=== PATIENT | female | born 1995 | race Caucasian/White ===

== ENCOUNTER 2021-12-22 06:16 | Inpatient (IN) ==
--- NOTE | 2021-12-13 15:16 | Anesthesiology Consultation ---
Date of Service December 13, 2021 Assessment & Plan (1) Encounter for pre-operative examination: COVID screening: Per assessment on 12/13: No known COVID-19 positive contacts or current COVID-19 related symptoms. Travel screen negative. Surgeon arranging preop COVID testing. Awaiting results. 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 History Surgery Operation Date: 12/22/21 09:35 Proposed Procedures p Section in - Zeke Ziggy Dave MD Height/Weight Height: 5 ft 7 in Weight: 81.193 kg Allergies Allergy/AdvReac Type Severity Reaction Status Date / Time No Known Allergies Allergy Verified 12/13/21 14:41 Medications Home Medications Medication Instructions Recorded Confirmed Last Taken No Known Home Medications 12/13/21 12/13/21 Unknown Past Medical History Medical History Hx of fracture of wrist No surgical intervention Past Surgical History Surgical History Hx of oral surgery tooth implant Social History Smoking Status: Former smoker Do You Dip or Chew Tobacco: No Smoking End Date: quit 3 years ago Hx Alcohol Use: Yes (not currently due to ) Alcohol type: beer alcohol intake frequency: a few times a month Hx Substance Use: No substance use type: does not use
[~2021-12-22 06:16] MED LIST: CITRIC ACID/SODIUM CITRATE 15 ML UDC PO SCH; LACTATED RINGER'S 1,000 ML IV SCH
[2021-12-22] MEDS ORDERED: cefOXitin 2,000 MG in DEXTROSE 5% 50 ML IV STA (06:41)
[2021-12-22 07:05] LABS: Basophils # (auto) 0.04 K/uL (0-0.2); Basophils % (auto) 0.4 %; Eosinophils # (auto) 0.06 K/uL (0-0.50); Eosinophils % (auto) 0.6 %; Hematocrit (blood only) 34.1 % (34.1-44.9); Hemoglobin 11.8 g/dl (12.0-16.0); Immature Granulocytes # (auto) 0.13 K/uL (0.00-0.02); Immature Granulocytes % (auto) 1.3 %; Lymphocytes # (auto) 1.92 K/uL (1.2-3.4); Mean Corpuscular Hemoglobin 31.1 pg (25.0-34.0); Mean Corpuscular Hgb Conc 34.6 g/dL (32.0-36.0); Mean Corpuscular Volume 89.7 fL (80.0-100.0); Mean Platelet Volume 10.4 fL (9.4-12.3); Monocytes % (auto) 6.9 %; Neutrophils # (auto) 7.23 K/uL (1.4-6.5); Neutrophils % (auto) 71.8 %; Platelet Count 229 K/uL (130-400); RDW Standard Deviation 38.9 fL (36.4-46.3); White Blood Count 10.08 K/ul (4.8-10.8)
[2021-12-22 07:59] LABS: INR 0.9 (0.9-1.1); Partial Thromboplastin Ratio 0.9; Partial Thromboplastin Time 24.8 Seconds (21.0-31.0); Prothrombin Time 9.9 Seconds (9.0-12.0)
[2021-12-22] MEDS ORDERED: BUPIVACAINE 0.25% 30 ML VIAL ONE (08:04)
[2021-12-22] MEDS ORDERED: fentaNYL citrate 100 MCG/2 ML VIAL ONE (08:15)
[2021-12-22] MEDS ORDERED: MoRPHine SULFATE PF 1 MG/ML 10 ML AMP/VIAL ONE ×2 (08:26→09:13)
[2021-12-22] MEDS ORDERED: LACTATED RINGER'S 500 ML IV PRN (09:44)
[2021-12-22] MEDS ORDERED: NALOXONE HCL 0.08 MG in SYRINGE 1.8 ML IV PRN (09:44)
[2021-12-22] MEDS ORDERED: PROMETHAZINE HCL 12.5 MG in SODIUM CHLORIDE 0.9% 50 ML IV PRN (09:44)
[2021-12-22] MEDS ORDERED: diphenhydrAMINE 50 MG/ML VIAL IV PRN ×2 (09:44→10:36)
[2021-12-22] MEDS ORDERED: ONDANSETRON INJ 2 MG/ML 2 ML VIAL IV PRN ×2 (09:44→10:36)
[2021-12-22] MEDS ORDERED: NALOXONE HCL 1 MG in SODIUM CHLORIDE 0.9% 1000ML 1,000 ML IV PRN (09:44)
[2021-12-22] MEDS ORDERED: MoRPHine SULFATE 2 MG/ML CARP IV PRN (09:44)
[2021-12-22] MEDS ORDERED: NALOXONE HCL 0.4 MG/1 ML VIAL/CARP IV PRN (09:44)
[2021-12-22] MEDS ORDERED: MoRPHine SULFATE PF 1 MG/ML 10 ML AMP/VIAL INT SPINAL ONE (09:44)
[2021-12-22] MEDS ORDERED: ePHEDrine sulfate 50 MG/ML AMP IV PRN (09:44)
[2021-12-22] MEDS ORDERED: NALBUPHINE HCL INJ 10 MG/ML AMP IV PRN (09:44)
[2021-12-22] MEDS ORDERED: SODIUM CHLORIDE 0.9% 1000ML 1,000 ML IV SCH (09:45)
[2021-12-22] MEDS ORDERED: NO NARCOTICS OR SEDATIVES SCH (09:45)
[2021-12-22] MEDS ORDERED: DC INTRASPINAL MORPHINE SCH (09:45)
[2021-12-22] MEDS ORDERED: OXYTOCIN 10 UNITS/ML VIAL ONE (09:52)
[2021-12-22] MEDS ORDERED: ONDANSETRON INJ 2 MG/ML 2 ML VIAL ONE (09:59)
[2021-12-22] MEDS ORDERED: METOCLOPRAMIDE HCL INJ 5 MG/ML 2 ML VIAL ONE (09:59)
[2021-12-22] MEDS ORDERED: PROPOFOL IV EMULSION 10 MG/ML 20 ML VIAL IV ONE (09:59)
[2021-12-22] MEDS ORDERED: OXYTOCIN 10 UNITS/ML 10ML VIAL ONE (09:59)
[2021-12-22] MEDS ORDERED: ePHEDrine sulfate 50 MG/ML SYR ONE (09:59)
[2021-12-22] MEDS ORDERED: PHENYLEPHRINE 100MCG/ML 5ML SYR ONE (09:59)
[2021-12-22] MEDS ORDERED: SUCCINYLCHOLINE CHLORIDE 20 MG/ML 10 ML VIAL IV ONE (09:59)
--- NOTE | 2021-12-22 10:01 | History and Physical Report ---
DATE OF ADMISSION: 12/22/2021 CHIEF COMPLAINT: Vaginal bleeding post-external podalic version, abruption of the placenta. HISTORY OF PRESENT ILLNESS: The patient is a 26-year-old 2, para 0. She had an uneventful p renatal course. However, the baby has been breach, has been documented to be breech for well over a month. Placenta was in the upper right fundal portion. The patient requested attempted version. We brought her into the hospital at 39 weeks and performed a successful external podalic version; daniel jerome, several minutes after the version, we did a vaginal exam, she had some bright red vaginal bleeding . At this time, she was felt to have partial abruption of the placenta secondary to the version and w e proceeded to do primary low segment section. PAST MEDICAL HISTORY: No known drug allergies. PAST SURGICAL HISTORY: She had an implant of one of her teeth. MEDICAL HISTORY: No history of rheumatic fever, heart disease, heart murmur, diabetes or tuberculosi s. SOCIAL HISTORY: About half a pack a day smoker for several years, quit about 3 years ago. No alcoho l intake. Works at [employer] [place]. FAMILY HISTORY: Mom is 53, in good health. Father 54, in good health. One sister 29, in good healt h. One brother 23, in good health. REVIEW OF SYSTEMS: HEAD: No symptoms of frequent or severe headaches. EYES: No symptoms of blurred vision or double vision. EARS: No symptoms of frequent ear infections, difficulty hearing. PHYSICAL EXAMINATION: GENERAL: Well-developed, well-nourished 26-year-old white female, alert, oriented x3, cooperative, i n no acute distress, appeared her stated age. EYES: Conjunctivae are pink. Sclerae are white, no evidence of jaundice. ENT: Ears had normal light reflex bilaterally. NOSE: Had normal mucosa. Septum is midline. There were no polyps. THROAT: No erythema or evidence of infection. HEART: Had regular rhythm. S1 and S2 are normal. BREASTS: Normal. ABDOMEN: Revealed term size fetus. No CVA tenderness. Was at vertex presentation. PELVIC: Revealed large amount of bright red vaginal bleeding. Cervix 1 cm open. MUSCULOSKELETAL: Revealed no calf tenderness. IMPRESSION OF THIS CASE: Intrauterine at 39 weeks' gestation, abruption of the placenta se condary to external version. Job ID: [id number]
[2021-12-22] MEDS ORDERED: LIDOCAINE 2%/EPINEPHRINE 1:200,000 20 ML SDV ONE (10:07)
[2021-12-22] MEDS ORDERED: ARISTA ABSORBABLE HEMOSTAT 3GM ONE (10:17)
[2021-12-22] MEDS ORDERED: OXYTOCIN 10 UNITS/ML 10ML VIAL IM ONE (10:19)
[2021-12-22] MEDS ORDERED: SENNA 8.6 MG TAB PO PRN (10:36)
[2021-12-22] MEDS ORDERED: diphenhydrAMINE Capsule 25 MG CAP PO PRN (10:36)
[2021-12-22] MEDS ORDERED: MEPERIDINE HCL 50 MG/ML CARP IV PRN (10:36)
[2021-12-22] MEDS ORDERED: KETOROLAC 30 MG/ML VIAL IV PRN (10:36)
[2021-12-22] MEDS ORDERED: DIPHTHERIA/TETANUS/PERTUSSIS 0.5 ML SYR/VIAL IM ONE (10:36)
[2021-12-22] MEDS ORDERED: ZOLPIDEM TARTRATE 5 MG TAB PO PRN (10:36)
[2021-12-22] MEDS ORDERED: HYDROCORTISONE ACETATE 25 MG SUPP PR PRN (10:36)
[2021-12-22] MEDS ORDERED: BENZOCAINE 20% AER SPR 82.5 GM CAN EXT PRN (10:36)
[2021-12-22] MEDS ORDERED: MAGNESIUM HYDROXIDE SUSP 30 ML UDC PO PRN (10:36)
[2021-12-22] MEDS ORDERED: PROMETHAZINE HCL 25 MG in SODIUM CHLORIDE 0.9% 50 ML IV PRN (10:36)
--- NOTE | 2021-12-22 10:36 | Post Operative Brief Note ---
Immediate Post Op Note v1 Date of Surgery December 22, 2021 Pre & Post Diagnosis Operation Date: 12/22/21 08:15 Pre-Op Diagnosis: Primary Section for Bleeding following successful Version. Post-Op Diagnosis: Primary Section for Bleeding following successful Version. I identified the patient and participated in the time-out.: Yes Procedure Operation Date: 12/22/21 08:15 Actual Procedures p Section in Labor and Delivery; Live Male at 0955(Bilateral) - Zeke Dave MD Surgeon Zeke Dave MD Senior Architectural Designer Dr Tinsley Estimated Blood Loss 700 Findings Consistent with Post-Op Diagnosis vertex presentation Drains Reyes Catheter Anesthesia Type Spinal Complications none
[2021-12-22] MEDS ORDERED: LACTATED RINGER'S 1,000 ML IV SCH (10:45)
--- NOTE | 2021-12-22 11:45 | Operative Report (OR) ---
DATE OF PROCEDURE: 12/22/2021 PROCEDURE: Primary low segment section. INDICATIONS FOR SURGERY: Vaginal bleeding post-external podalic version. PREOPERATIVE DIAGNOSIS: Intrauterine at 39 weeks' gestation. POSTOPERATIVE DIAGNOSES: Intrauterine at 39 weeks' gestation. Nuchal cord x1. SURGEON: Liliana Dave MD. SAMPLE MAKER HAND: Laverne Bush MD. ESTIMATED BLOOD LOSS: 700 mL ANESTHESIA: Spinal. OPERATIVE FINDING AND PROCEDURE: The patient was brought to the OR table, correctly identified by lauren sierra and conversation. Spinal anesthesia was administered. Lower abdomen was painted with an alcoh ol based sterilizing solution and draped in usual sterile fashion. Pfannenstiel incision was made, c arried down to the anterior fascia by sharp dissection. Hemostasis was secured by electrocauterizati on. Fascia was incised transversely from the underlying muscle by blunt and sharp dissect ion. Recti muscles were in the midline supposed in the peritoneum, which was carefully curran sed and entered. The lower uterine segment was exposed. Incision was made above the vesicouterine f old. Bladder was undermined bluntly, pushed out of the operative field. Lower uterine segment was s cored with a knife and then entered with the scissors. Amniotic fluid was seen at this time, incisio n was then extended laterally. A Vectis retractor was applied to the head and with fundal pressure, the head was delivered, there was a nuchal cord, which had to be reduced over the head and then the s houlders were delivered and the body was delivered. Cord blood was stripped and then clamped and cut and the infant was shown to the mother and attended to by the public address systems mechanic who was scrubbed, and pre sent at the time of delivery. Cord blood was taken. Placenta was removed manually. Uterus, tubes, and ovaries were brought out through the incision. Uterine cavity was cleansed with a clean sponge. 10 units of Pitocin was injected into the myometrium. The myometrium was approximated in layers. T he muscular layer was approximated with continuous heavy duty chromic. Then, the fascial layer was a pproximated over this with a continuous suture of heavy Vicryl. Then, there was about 3 descux-qy-dl ght sutures of heavy Vicryl that finish the approximation of the fascial layer. The peritoneal layer was then approximated with a 3-0 chromic. Hemostasis was excellent. Pelvis was cleansed of all blo od clots and debris. Uterus, tubes, and ovaries were reinserted into the abdomen. Careful anatomica l approximation of the anterior abdominal wall was performed. The peritoneum was closed with a mattr ess suture of chromic catgut. Recti muscles were approximated in [id number]-cavog suture chromic catg ut. Fascia was closed with continuous interlocking suture of Vicryl on each side tied in the midline . Subcutaneous was approximated with a running plain and skin edges were approximated with staple cl [facility]. Job ID: [id number]
[2021-12-22] MEDS: KETOROLAC 30 MG/ML VIAL IV PRN ×2 (13:03→21:08)
[2021-12-22] MEDS: SIMETHICONE 80 MG CHEW PO SCH ×3 (13:26→21:07)
--- NOTE | 2021-12-22 13:33 | Anesthesiology Progress Note ---
Date of Service December 22, 2021 Anesthesia Post Procedure Vital Signs Vital Signs: Temp Pulse Resp BP Pulse Ox 12/22/21 13:30 72 100 12/22/21 13:25 72 100 12/22/21 13:20 69 100 12/22/21 13:15 70 100 12/22/21 13:10 71 100 12/22/21 13:05 68 100 12/22/21 13:00 64 100 12/22/21 12:55 68 100 12/22/21 12:50 62 100 12/22/21 12:45 65 100 12/22/21 12:41 36.4 C L 75 20 127/58 L 12/22/21 12:40 77 100 12/22/21 12:35 69 100 12/22/21 12:31 65 119/57 L 12/22/21 12:30 77 100 12/22/21 12:25 74 100 12/22/21 12:21 81 108/62 12/22/21 12:20 80 100 12/22/21 12:15 67 100 12/22/21 12:12 80 99/66 L 12/22/21 12:11 20 12/22/21 12:10 70 98 12/22/21 12:05 71 98 12/22/21 12:00 81 99 12/22/21 11:55 78 98 12/22/21 11:50 81 98 12/22/21 11:45 83 98 12/22/21 11:41 36.8 C 69 20 113/57 L 12/22/21 11:40 70 98 12/22/21 11:35 79 98 12/22/21 11:32 70 110/67 12/22/21 11:31 20 12/22/21 11:30 74 98 12/22/21 11:25 83 99 12/22/21 11:21 70 20 103/63 12/22/21 11:20 74 97 12/22/21 11:15 84 97 12/22/21 11:11 70 18 108/62 12/22/21 11:10 77 96 12/22/21 11:05 71 94 12/22/21 11:01 79 18 112/55 L 12/22/21 11:00 76 93 12/22/21 10:57 66 91 12/22/21 10:55 69 100 12/22/21 10:51 70 18 101/60 12/22/21 10:50 74 100 12/22/21 10:49 69 89 L 12/22/21 10:45 70 100 12/22/21 10:41 36.4 C L 65 18 102/55 L 12/22/21 10:40 68 100 12/22/21 07:40 37.0 C 75 18 113/71 Pain Intensity Bilateral Abdomen: Pain Intensity: 3 Transfer of Care Handoff Completed per policy Notes Mental Status: alert / awake / arousable Patient Amnestic to Procedure: Yes Nausea / Vomiting: adequately controlled Pain: adequately controlled Airway Patency, RR, SpO2: stable & adequate BP & HR: stable & adequate Hydration State: stable & adequate Neuraxial Anesthesia: was administered and sensory block is resolving Anesthetic Complications: no major complications apparent
[2021-12-22] MEDS: OXYTOCIN 20 UNITS in D5W AND LACTATED RINGERS 1,000 ML IV SCH ×2 (13:54→21:51)
[2021-12-22] MEDS: DOCUSATE SODIUM 100 MG CAP PO SCH (21:07)
[2021-12-23 06:35] LABS: Basophils # (auto) 0.02 K/uL (0-0.2); Basophils % (auto) 0.2 %; Eosinophils # (auto) 0.04 K/uL (0-0.50); Eosinophils % (auto) 0.3 %; Hematocrit (blood only) 26.3 % (34.1-44.9); Hemoglobin 9.1 g/dl (12.0-16.0); Immature Granulocytes # (auto) 0.09 K/uL (0.00-0.02); Immature Granulocytes % (auto) 0.7 %; Lymphocytes # (auto) 1.41 K/uL (1.2-3.4); Lymphocytes % (auto) 10.6 %; Mean Corpuscular Hemoglobin 31.1 pg (25.0-34.0); Mean Corpuscular Hgb Conc 34.6 g/dL (32.0-36.0); Mean Corpuscular Volume 89.8 fL (80.0-100.0); Mean Platelet Volume 9.8 fL (9.4-12.3); Monocytes # (auto) 0.93 K/uL (0.24-0.82); Neutrophils % (auto) 81.2 %; Platelet Count 164 K/uL (130-400); RDW Standard Deviation 39.7 fL (36.4-46.3); Red Blood Count 2.93 M/uL (3.93-5.22); White Blood Count 13.29 K/ul (4.8-10.8)
[2021-12-23] MEDS: SIMETHICONE 80 MG CHEW PO SCH ×4 (08:04→21:10)
[2021-12-23] MEDS: FERROUS SULFATE 325 MG TAB PO SCH (08:04)
[2021-12-23] MEDS: PRENATAL VITAMIN 1 TAB PO SCH (08:04)
[2021-12-23] MEDS: DOCUSATE SODIUM 100 MG CAP PO SCH ×2 (08:04→21:10)
--- NOTE | 2021-12-23 09:18 | Obstetrical Progress Note ---
Date of Service December 23, 2021 Assessment & Plan Admission and Anticipated Discharge Date Admission Date: December 22, 2021 Subjective abdomen soft and non tender bandage clean and dry bandage removed incision is clean and dry no calf tenderness vaginal bleeding scant hgb 9.1 Results & Data ([facility]) Vital Signs (Past 12 Hours) Vital Signs Temp Pulse Pulse Resp BP Pulse Ox 12/23/21 08:02 36.5 C 88 15 107/67 99 12/23/21 04:13 36.6 C 83 16 102/62 99 12/23/21 03:00 18 96 12/23/21 02:08 18 96 12/23/21 01:00 18 96 12/23/21 00:25 18 94 12/22/21 23:00 18 95 12/22/21 22:51 36.7 C 75 16 112/70 98 12/22/21 22:20 20 99 12/22/21 21:20 20 99
[2021-12-23] MEDS: IBUPROFEN 600 MG TAB PO PRN ×3 (11:33→23:55)
[2021-12-23] MEDS: oxyCODONE/ACETAMINOPHEN 5mg/325mg TAB PO PRN ×3 (11:34→23:56)
[2021-12-23] MEDS ORDERED: bisacodyL 5 MG TABEC PO SCH (20:00)
[2021-12-24] MEDS: oxyCODONE/ACETAMINOPHEN 5mg/325mg TAB PO PRN (06:44)
[2021-12-24] MEDS: IBUPROFEN 600 MG TAB PO PRN (06:44)
[2021-12-24 06:47] LABS: Hematocrit (blood only) 26.5 % (34.1-44.9); Hemoglobin 8.9 g/dl (12.0-16.0)
--- NOTE | 2021-12-24 08:16 | Obstetrical Progress Note ---
Date of Service December 24, 2021 Assessment & Plan Admission and Anticipated Discharge Date Admission Date: December 22, 2021 Subjective abdomen soft and non tender incision is clean and dry no calf tenderness ambulating well vaginal bleeding scant hgb 8.9 Results & Data ([facility]) Vital Signs (Past 12 Hours) Vital Signs Temp Pulse Resp BP Pulse Ox 12/23/21 23:50 36.5 C 74 16 120/75 12/23/21 20:55 36.4 C L 77 20 108/69 99
[2021-12-24] MEDS: SIMETHICONE 80 MG CHEW PO SCH (08:28)
[2021-12-24] MEDS: DOCUSATE SODIUM 100 MG CAP PO SCH (08:28)
[2021-12-24] MEDS: PRENATAL VITAMIN 1 TAB PO SCH (08:29)
[2021-12-24] MEDS: FERROUS SULFATE 325 MG TAB PO SCH (08:29)
[2021-12-24] MEDS ORDERED: bisacodyL 10 MG SUPP PR PRN (10:36)
--- NOTE | 2021-12-24 10:54 | Discharge Summary (DS) ---
HOSPITAL COURSE: Mrs. Woodard is followed in my office for care and delivery. She was diag nosed as having a breech presentation a good 6 weeks prior to delivery. She was ultrasounded several times to confirm it. She was brought in at 39 weeks. She requested attempt at version. We perform ed an external podalic version, it was successful. We confirmed it with ultrasound. We were getting ready to rupture the membranes and she started to have a lot of bright red vaginal bleeding. It was felt at this time that part of the placenta had been abrupted due to the version and we proceeded wi th a primary low segment section. This was performed without difficulty. Estimated blood l oss was about 600 mL. Her hemoglobin went from 11.8 to at the time of discharge 8.9. Postoperativel y, she did well. Bowel sounds returned within 24 hours. She remained afebrile. She did get prophyl actic antibiotics prior to the . At the time of discharge, she was ambulating well, eating well, tolerating a regular diet. Incision was clean and dry. She was given prescriptions for Percoc et to take for pain control and to return to the office in a week for removal of aung. Job ID: [id number]
== END 2021-12-24 14:15 | disposition home or self-care (01) | DRG 786 ==
LOC: 4S1 06:16 → EDSTATUS 09:35 → 4E2 13:57